=== PATIENT | female | born 1990 | race Two or more races ===

== ENCOUNTER 2023-03-03 07:10 | Day surgery (SDC) | payer OTHER ==
[~2023-03-03] VITALS: Ht 160 cm; Wt 96.2 kg
== END 2023-03-03 16:45 | disposition home or self-care (01) ==
LOC: CIR.AMB 07:10
PROVIDERS: ATTEND Obstetrics & Gynecology
DX: N93.8 Other specified abnormal uterine and vaginal bleeding (principal); N85.00 Endometrial hyperplasia, unspecified; Z20.822 Contact with and (suspected) exposure to COVID-19; D50.9 Iron deficiency anemia, unspecified